=== PATIENT | male | born 1955 | race Caucasian/White ===

== ENCOUNTER 2021-02-25 06:33 | Emergency (ER) | payer MEDICARE ==
[~2021-02-25] VITALS: Ht 172.7 cm; Wt 88.0 kg
[2021-02-25 06:38] VITALS: BP 142/91
[2021-02-25] MEDS ORDERED: triamcinolone acetonide 40mg/ml inj IM ONE (09:15)
== END 2021-02-25 10:45 | disposition home or self-care (01) ==
LOC: ER 06:34
DX: L23.7 Allergic contact dermatitis due to plants, except food (principal); R21 Rash and other nonspecific skin eruption; Z72.89 Other problems related to lifestyle; Z98.890 Other specified postprocedural states; Z60.2 Problems related to living alone
CPT/HCPCS: 96372; 99283; J3301